=== PATIENT | female | born 1990 | race African-American/Black ===

== ENCOUNTER 2018-02-23 09:12 | Inpatient (IN) | payer MEDICAID ==
[~2018-02-23] VITALS: Ht 170.2 cm; Wt 109.8 kg
[2018-02-23] MEDS ORDERED: ALBU90AE INH (09:45)
[2018-02-23] MEDS ORDERED: PNV1TABL76 MT (09:48)
[2018-02-23] MEDS ORDERED: FERR325T6 PO (09:48)
[2018-02-23] MEDS ORDERED: AMPICILLIN 2,000 MG in SODIUM CHLORIDE 0.9% 100 ML IV NR (10:45)
[2018-02-23] MEDS: LACTATED RINGERS 1,000 ML IV SCH ×2 (11:26→13:19)
[2018-02-23 11:52] LABS: BASOPHILS % 0.3 % (0.0-2.0); EOSINOPHILS % 0.4 % (0.0-5.0); HEMATOCRIT. 36.8 % (36.0-48.0); HEMOGLOBIN. 12.3 g/dL (12.0-16.0); LYMPHOCYTES % 12.1 % (20.0-50.0); MEAN CORPUSCULAR HEMOGLOBIN 28.9 pg (28.0-32.0); MEAN CORPUSCULAR VOLUME 86.8 fL (81.0-99.0); MEAN PLATELET VOLUME 9.5 fl (7.4-10.4); MONOCYTES % 6.2 % (2.0-8.0); PLATELET 212 x1000/uL (130-400); RED BLOOD CELL COUNT 4.25 mill/uL (4.2-5.4); RED CELL DISTRIBUTION WIDTH 15.1 % (11.6-14.6)
[2018-02-23 11:56] LABS: INR 0.9; PARTIAL THROMBOPLASTIN TIME 24.8 sec (23.4-31.0); PROTHROMBIN TIME 9.7 sec (9.4-11.6)
[2018-02-23] MEDS ORDERED: PHENYLEPHRINE HCL 10 MG/ML 1ML (IV VIAL) IV ONE (12:27)
[2018-02-23] MEDS ORDERED: OXYTOCIN 10 UNITS/ML 1ML ONE (12:27)
[2018-02-23] MEDS ORDERED: EPHEDRINE SULFATE 50MG/ML VIAL ONE (12:27)
[2018-02-23] MEDS ORDERED: GLYCOPYRROLATE 0.2 MG/ML 2ML VIAL ONE (12:27)
[2018-02-23] MEDS ORDERED: CEFAZOLIN 2000MG PREMIX 50 ML IV ONE (12:27)
[2018-02-23] MEDS ORDERED: ONDANSETRON HCL 4MG/2ML VIAL ONE (12:27)
[2018-02-23] MEDS ORDERED: MORPHINE SULFATE/PF 1MG/ML 10ML AMP ONE (12:28)
[2018-02-23] MEDS ORDERED: FENTANYL CITRATE/PF 50MCG/ML 2ML VIAL ONE (12:28)
[2018-02-23] MEDS ORDERED: SODIUM CHLORIDE 0.9% 10ML VIAL ONE (12:31)
[2018-02-23 12:35] LABS: HEPATITIS B SURFACE ANTIGEN NEGATIVE
[2018-02-23] MEDS ORDERED: TERBUTALINE SULFATE 1MG/ML VIAL SUBCUT NR (12:45)
[2018-02-23 13:33] LABS: CLARITY URINE CLEAR (CLEAR); COLOR URINE DARK YELLOW (YELLOW); KETONES URINE 2+ (NEGATIVE); LEUKOCYTE ESTERASE URINE NEGATIVE (NEGATIVE); NITRITE URINE NEGATIVE (NEGATIVE); OCCULT BLOOD URINE NEGATIVE (NEGATIVE); PROTEIN URINE 1+ (NEGATIVE); SPECIFIC GRAVITY URINE 1.045 (1.005-1.030)
[2018-02-23 13:52] LABS: *BARBITURATES SCREEN URINE NEGATIVE (NEGATIVE); *COCAINE SCREEN URINE NEGATIVE (NEGATIVE)
[2018-02-23 13:53] LABS: *BENZODIAZEPINES SCREEN URINE NEGATIVE (NEGATIVE); METHADONE URINE SCREEN NEGATIVE (NEGATIVE); OPIATES URINE SCREEN NEGATIVE (NEGATIVE)
[2018-02-23 13:54] LABS: PHENCYCLIDINE URINE SCREEN NEGATIVE (NEGATIVE)
[2018-02-23 14:12] LABS: *AMPHETAMINES SCREEN URINE PRESUMTIVE POSITIVE (NEGATIVE)
[2018-02-23 14:13] LABS: CANNABINOID URINE SCREEN PRESUMTIVE POSITIVE (NEGATIVE)
[2018-02-23] MEDS ORDERED: HEMORRHOIDAL SUPP PR PRN (15:00)
[2018-02-23] MEDS ORDERED: LANOLIN OINT 0.25 GM TUBE TOP PRN (15:00)
[2018-02-23] MEDS ORDERED: AMPICILLIN 1,000 MG in SODIUM CHLORIDE 0.9% 50 ML IV SCH (15:00)
[2018-02-23] MEDS ORDERED: HYDROCODONE/ACETAMINOPHEN 5/325MG TABLET PO PRN (15:00)
[2018-02-23] MEDS ORDERED: ONDANSETRON HCL 4MG/2ML VIAL IV PRN (15:00)
[2018-02-23] MEDS ORDERED: BISACODYL 10MG SUPP PR PRN (15:00)
[2018-02-23] MEDS ORDERED: DIPHENHYDRAMINE 25MG CAPSULE PO PRN (15:00)
[2018-02-23] MEDS ORDERED: DIPHENHYDRAMINE 50MG/ML VIAL ONE (15:07)
[2018-02-23] MEDS ORDERED: DIPHENHYDRAMINE 50MG/ML VIAL IV PRN (15:15)
[2018-02-23] MEDS ORDERED: KETOROLAC 30MG/ML VIAL IV PRN (15:15)
[2018-02-23] MEDS ORDERED: BUTORPHANOL TARTRATE 2 MG/ML VIAL IV PRN (15:15)
[2018-02-23] MEDS ORDERED: NALOXONE HCL 0.4 MG/ML 1ML VIAL IV PRN (15:15)
[2018-02-23] MEDS: DEXT 5%/LR + PITOCIN 20UNITS/L 1,000 ML IV SCH ×2 (15:28→23:48)
[2018-02-23 17:30] VITALS: BP 108/68
[2018-02-23 18:00] VITALS: BP 116/70
[2018-02-23 19:30] VITALS: BP 124/74
[2018-02-24] VITALS (9 sets, daily range): BP systolic 96–128; BP diastolic 46–68
[2018-02-24 08:06] LABS: BASOPHILS % 0.2 % (0.0-2.0); EOSINOPHILS % 0.6 % (0.0-5.0); HEMATOCRIT. 32.2 % (36.0-48.0); HEMOGLOBIN. 10.9 g/dL (12.0-16.0); LYMPHOCYTES % 13.1 % (20.0-50.0); MEAN CORPUSCULAR HEMOGLOBIN 28.7 pg (28.0-32.0); MEAN CORPUSCULAR VOLUME 85.1 fL (81.0-99.0); MEAN PLATELET VOLUME 9.2 fl (7.4-10.4); MONOCYTES % 7.2 % (2.0-8.0); NEUTROPHILS % 78.9 % (40.0-76.0); PLATELET 186 x1000/uL (130-400); RED BLOOD CELL COUNT 3.79 mill/uL (4.2-5.4); RED CELL DISTRIBUTION WIDTH 15.2 % (11.6-14.6)
[2018-02-24] MEDS: PRENATAL VIT/FE FUMARATE/FA TABLET PO SCH (09:22)
[2018-02-24] MEDS: FERROUS SULFATE 325MG TABLET PO SCH ×2 (13:00→17:00)
[2018-02-24] MEDS: ACETAMINOPHEN WITH CODEINE 300/30MG TABLET PO PRN (15:25)
[2018-02-24] MEDS ORDERED: ACETAMINOPHEN WITH CODEINE 300/30MG TABLET ONE (15:39)
[2018-02-24] MEDS: ALBUTEROL (0.083%) 2.5MG/3ML NEB HHN SCH (20:09)
[2018-02-24] MEDS ORDERED: ALBUTEROL (0.083%) 2.5MG/3ML NEB HHN PRN (20:30)
[2018-02-24] MEDS: DOCUSATE SODIUM 100MG CAPSULE PO SCH ×2 (20:55→21:00)
[2018-02-24] MEDS ORDERED: ACETAMINOPHEN 500MG TABLET PO PRN (21:30)
[2018-02-24] MEDS ORDERED: TERBUTALINE SULFATE 1MG/ML VIAL SUBCUT PRN (23:00)
[2018-02-24] MEDS ORDERED: TERBUTALINE SULFATE 1MG/ML VIAL SUBCUT ONE (23:00)
[2018-02-24] MEDS ORDERED: LACTATED RINGERS 1,000 ML IV SCH (23:00)
[2018-02-25] MEDS: ALBUTEROL (0.083%) 2.5MG/3ML NEB HHN SCH ×6 (00:19→20:04)
[2018-02-25 04:00] VITALS: BP 105/74
[2018-02-25 05:37] VITALS: BP 124/56
[2018-02-25] MEDS: ACETAMINOPHEN WITH CODEINE 300/30MG TABLET PO PRN ×3 (05:37→18:20)
[2018-02-25 07:35] VITALS: BP 121/52
[2018-02-25] MEDS: PRENATAL VIT/FE FUMARATE/FA TABLET PO SCH (09:15)
[2018-02-25] MEDS: FERROUS SULFATE 325MG TABLET PO SCH ×3 (09:15→17:00)
[2018-02-25 12:00] VITALS: BP 110/62
[2018-02-25 17:25] VITALS: BP 116/72
[2018-02-25 22:00] VITALS: BP 124/75
[2018-02-26] MEDS: ALBUTEROL (0.083%) 2.5MG/3ML NEB HHN SCH ×4 (01:20→16:00)
[2018-02-26] MEDS: IBUPROFEN 400MG TABLET PO PRN ×2 (01:53→08:46)
[2018-02-26 06:00] VITALS: BP 112/72
[2018-02-26 07:42] VITALS: BP 90/53
[2018-02-26] MEDS: FERROUS SULFATE 325MG TABLET PO SCH ×3 (08:45→18:05)
[2018-02-26] MEDS: PRENATAL VIT/FE FUMARATE/FA TABLET PO SCH (08:46)
[2018-02-26] MEDS ORDERED: TETANUS, DIPHTHERIA, PERTUSSIS VAC/PF 0.5ML (>7YR OLD) IM ONE (10:00)
[2018-02-26 15:55] VITALS: BP 116/78
[2018-02-26 20:00] VITALS: BP 120/82
== END 2018-02-26 21:15 | disposition home or self-care (01) | DRG 540 ==
LOC: L&D 09:12 → OBSVTOIN 14:22 → 7EST PP/OB 17:43
PROVIDERS: ADMIT Obstetrics & Gynecology; ATTEND Obstetrics & Gynecology
PROC: 10D00Z1 Extraction of Products of Conception, Low, Open Approach (ICD-10-PCS; principal; 2018-02-23 14:58)
DX: O76 Abnormality in fetal heart rate and rhythm complicating labor and delivery (principal); D62 Acute posthemorrhagic anemia; O77.0 Labor and delivery complicated by meconium in amniotic fluid; O90.81 Anemia of the puerperium; Z37.0 Single live birth; Z79.899 Other long term (current) drug therapy
CPT/HCPCS: 36415; 76815; 80305; 80307; 80349; 80359; 81003; 85025; 85610; 85730; 86592; 86703; 86762; 86850; 86900; 87340; 88307; 90715; 94640; A4216; G0378; J0290; J0595; J0690; J1200; J1885; J2274; J2370; J2405; J2590; J3010; J3105; J3490; J7050; J7120; J7611; A4315